=== PATIENT | female | born 1965 | race African-American/Black ===

== ENCOUNTER 2022-05-27 11:20 | Emergency (ER) | payer OTHER ==
[2022-05-27 11:26] VITALS: BP 116/72; PULSE 91; RESP 18; TEMP 98.2
[2022-05-27 12:19] LABS: Basophils # (A) 0.1 k/uL (0-0.2); Basophils % (A) 1 %; Eosinophils # (A) 0.2 k/uL (0-0.7); Eosinophils % (A) 2 %; HCT 39.5 % (34.0-46.0); HGB 13.4 gm/dL (11.4-16.0); Lymphocytes # (A) 2.4 k/uL (1.0-4.8); Lymphocytes % (A) 24 %; MCHC 34.1 g/dL (31.0-37.0); MCV 99.7 fL (80.0-100.0); Monocytes # (A) 0.5 k/uL (0-1.0); Monocytes % (A) 5 %; Neutrophils # (A) 6.9 k/uL (1.3-7.7); Neutrophils % (A) 67 %; Platelet Count 287 k/uL (150-450); RBC 3.96 m/uL (3.80-5.40); RDW 12.4 % (11.5-15.5); WBC 10.3 k/uL (3.8-10.6)
[2022-05-27 12:31] LABS: African American GFR (CKD) >90 (>60 ml/min/1.73 sqM); Anion Gap 4 mmol/L; Blood Urea Nitrogen 9 mg/dL (7-17); Calcium 9.2 mg/dL (8.4-10.2); Carbon Dioxide 30 mmol/L (22-30); Chloride 106 mmol/L (98-107); Glucose 88 mg/dL (74-99); Non-African American GFR(CKD) >90 (>60 ml/min/1.73 sqM); Potassium 4.4 mmol/L (3.5-5.1); Sodium 140 mmol/L (137-145)
--- NOTE | 2022-05-27 12:44 | ED ---
General Adult HPI - General Chief complaint: Recheck/Abnormal Lab/Rx Stated complaint: left side facial swelling Time Seen by Provider: 05/27/22 11:42 Source: patient, RN notes reviewed Mode of arrival: EMS Limitations: no limitations - History of Present Illness Initial comments: 56-year-old female sent emergency Department from [place] for evaluation of left-sided facial swelling. Patient states it started a few days ago worsen overnight. Patient states she has been having upper strength infection which I was improving. Patient was sent here secondary to facial swelling and concerns. Patient states she is shaky. Patient has not she has HIV but well-controlled, she states she is essentially nondetectable. Patient denies fevers chills neck pain neck stiffness or current headache. - Related Data Previous Rx's Medication Instructions Recorded Amoxic-Pot Clav 875-125Mg 1 tab PO Q12HR #20 tab 05/27/22 [Augmentin 875-125] Allergies Allergy/AdvReac Type Severity Reaction Status Date / Time No Known Allergies Allergy Verified 05/27/22 11:26 Review of Systems ROS Statement: Those systems with pertinent positive or pertinent negative responses have been documented in the HPI. ROS Other: All systems not noted in ROS Statement are negative. 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 Absent: scleral icterus, conjunctival injection, periorbital swelling ENT exam: Present: mucous membranes moist, TM's normal bilaterally. Absent: normal exam (Left-sided facial swelling), normal oropharynx (No obvious abscess) Neck exam: Present: normal inspection, full ROM. Absent: tenderness, meningismus, lymphadenopathy Respiratory exam: Present: normal lung sounds bilaterally. Absent: respiratory distress, wheezes, rales, rhonchi, stridor Cardiovascular Exam: Present: regular rate, normal rhythm, normal heart sounds. Absent: systolic murmur, diastolic murmur, rubs, gallop, clicks Course Vital Signs 05/27/22 11:22 Temperature 98.2 F Pulse Rate 91 Respiratory 18 Rate Blood Pressure 116/72 O2 Sat by Pulse 97 Oximetry Medical Decision Making - Medical Decision Making 56-year-old presented for left-sided facial swelling. There is phlegmonous formation. There is no definite abscess. Patient just started antibiotics will be continued on antibiotics lab work is unremarkable patient will be discharged with close return parameters. - Lab Data Result diagrams: 05/27/22 12:08 05/27/22 12:08 Lab Results 05/27/22 05/27/22 Range/Units 12:08 12:08 WBC 10.3 (3.8-10.6) k/uL RBC 3.96 (3.80-5.40) m/uL Hgb 13.4 (11.4-16.0) gm/dL Hct 39.5 (34.0-46.0) % MCV 99.7 (80.0-100.0) fL MCH 34.0 (25.0-35.0) pg MCHC 34.1 (31.0-37.0) g/dL RDW 12.4 (11.5-15.5) % Plt Count 287 (150-450) k/uL MPV 8.0 Neutrophils % 67 % Lymphocytes % 24 % Monocytes % 5 % Eosinophils % 2 % Basophils % 1 % Neutrophils # 6.9 (1.3-7.7) k/uL Lymphocytes # 2.4 (1.0-4.8) k/uL Monocytes # 0.5 (0-1.0) k/uL Eosinophils # 0.2 (0-0.7) k/uL Basophils # 0.1 (0-0.2) k/uL Sodium 140 (137-145) mmol/L Potassium 4.4 (3.5-5.1) mmol/L Chloride 106 (98-107) mmol/L Carbon Dioxide 30 (22-30) mmol/L Anion Gap 4 mmol/L BUN 9 (7-17) mg/dL Creatinine 0.58 (0.52-1.04) mg/dL Est GFR (CKD-EPI)AfAm >90 (>60 ml/min/1.73 sqM) Est GFR (CKD-EPI)NonAf >90 (>60 ml/min/1.73 sqM) Glucose 88 (74-99) mg/dL Calcium 9.2 (8.4-10.2) mg/dL Disposition Clinical Impression: Dental infection, Facial cellulitis Disposition: HOME SELF-CARE Condition: Stable Instructions (If sedation given, give patient instructions): Dental Abscess (ED) Additional Instructions: Please return to the Emergency Department if symptoms worsen or any other concerns. Prescriptions: Amoxic-Pot Clav 875-125Mg [Augmentin 875-125] 1 tab PO Q12HR #20 tab Is patient prescribed a controlled substance at d/c from ED?: No Referrals: None,Stated [Primary Care Provider] - 1-2 days Time of Disposition: 13:04
--- NOTE | 2022-05-27 12:55 | CT ---
EXAMINATION TYPE: CT soft tissue neck w con DATE OF EXAM: 05/27/2022 COMPARISON: None HISTORY: 56-year-old female with left neck and submandibular pain and swelling, Infection TECHNIQUE: Contiguous axial scanning of the soft tissues of the neck performed with IV Contrast, steve ent injected with 100 mL of Isovue 300. Coronal/sagittal reconstructions performed. CT DLP: 221.5 mGycm Automated exposure control for dose reduction was used. FINDINGS: Visualized thyroid, submandibular, and mildly atrophic parotid glands show no gross abnormality. Prominent bilateral submandibular space lymph nodes measuring up to 8 mm short axis on the left and 7 mm short axis on the right. Visualized intracranial structures and mastoid air cells appear clear. On delayed nasal septum. Trace mucosal thickening left ethmoid air cells. There is periapical lucency involving the left maxillary first molar, sagittal image 44 and axial lizeth ge 54. There is prominent overlying soft tissue thickening of both the mucosa and overlying left lowe r maxillary and left mandibular soft tissues. Some minimal poorly defined fluid collection overlying the alveolar ridge here measuring 3 mm thick, axial image 54 suggesting some phlegmon. No well-define d fluid collection is seen. Pronounced degenerative change of the bilateral TMJs. Visualized upper lungs are clear. Nasopharynx is clear. Bilateral lingual tonsillar hypertrophy. Otherwise, oropharynx is clear. Epiglottis and prevertebral soft tissues are satisfactory. Glottic and subglottic structures and tracheal column are clear. Moderate degenerative disc disease C4-C7 levels with reversal of the normal cervical lordosis. IMPRESSION: CELLULITIS ALONG THE LEFT SIDE OF THE FACE AND JAW. PROBABLY ODONTOGENIC ORIGIN GIVEN A PERIAPICAL JEFE CENCY/ABSCESS INVOLVING THE LEFT MAXILLARY FIRST MOLAR. THERE IS SOME 3 MM PHLEGMONOUS THICKENING OVE RLYING THE ALVEOLAR RIDGE HERE BUT NO DISCRETE ABSCESS.
== END 2022-05-27 13:47 | disposition home or self-care (01) ==
LOC: EC 11:20
DX: L03.211 Cellulitis of face (principal); K04.7 Periapical abscess without sinus; J44.9 Chronic obstructive pulmonary disease, unspecified; F41.9 Anxiety disorder, unspecified; F17.200 Nicotine dependence, unspecified, uncomplicated; F11.90 Opioid use, unspecified, uncomplicated; Z79.2 Long term (current) use of antibiotics
CPT/HCPCS: 36415; 80048; 85025; 70491; 99284; Q9967

== ENCOUNTER 2024-10-09 20:46 | Observation (INO) | payer OTHER ==
[2024-10-09 20:55] VITALS: RESP 18
--- NOTE | 2024-10-09 21:21 | ED ---
General Adult HPI - General Chief complaint: Chest Pain Stated complaint: Chest pain Time Seen by Provider: 10/09/24 20:53 Source: patient, EMS Mode of arrival: EMS - History of Present Illness Initial comments: Dictation was produced using [employer] dictation software. please excuse any grammatical, word or spelling errors. Chief Complaint: 59-year-old HIV-positive female presents to the ER for chest pain History of Present Illness: Patient is a 59-year-old female transferred from [facility] facility. Patient has history of coronary artery disease with 1 stent placed 25 years ago. Patient had some chest pain. She went to see medical staff and EMS, patient was brought to the ER she was given 1 nitro with resolution of her symptoms. Patient Nu[place] any symptoms at the bedside. The ROS documented in this emergency department record has been reviewed and confirmed by me. Those systems with pertinent positive or negative responses have been documented in the HPI. All other systems are other negative and/or noncontributory. - Related Data Previous Rx's Medication Instructions Recorded Amoxic-Pot Clav 875-125Mg 1 tab PO Q12HR #20 tab 05/27/22 [Augmentin 875-125] Allergies Allergy/AdvReac Type Severity Reaction Status Date / Time No Known Allergies Allergy Verified 05/27/22 11:26 Review of Systems ROS Statement: Those systems with pertinent positive or pertinent negative responses have been documented in the HPI. ROS Other: All systems not noted in ROS Statement are negative. 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 Cardiovascular: Heart regular rate and rhythm Chest: Able to complete full sentences, no retractions, no tachypnea Abdomen: abdomen soft, non-tender, non-distended, no organomegaly Musculoskeletal: Pulses present and equal in all extremities, no peripheral edema Motor: no focal deficits noted Neurological: CN II-XII grossly intact, no focal motor or sensory deficits noted Skin: Intact with no visualized rashes Psych: Normal affect and mood Course Vital Signs 10/09/24 10/09/24 20:48 21:55 Temperature 98.1 F Pulse Rate 89 88 Respiratory 18 18 Rate Blood Pressure 95/67 98/69 O2 Sat by Pulse 97 96 Oximetry EKG Findings - EKG Comments: EKG Findings:: My EKG interpretation: Ventricular rate 86, sinus rhythm, WV 211, cures 79, QTc 379. No WV prolongation, no QTC prolongation, no ST or T-wave changes noted. Overall, this EKG is unremarkable Medical Decision Making - Medical Decision Making Was pt. sent in by a medical professional or institution (, PA, OPERATIONS SECTION MANAGER, urgent care, hospital, or [facility]...) When possible be specific @ -No Did you speak to anyone other than the patient for history (EMS, parent, family, police, friend...)? What history was obtained from this source @ -No Did you review nursing and triage notes (agree or disagree)? Why? @ -I reviewed and agree with nursing and triage notes Were old charts reviewed (outside hosp., previous admission, EMS record, old EKG, old radiological studies, urgent care reports/EKG's, m[facility] records)? Report findings @ -No old charts were reviewed Differential Diagnosis (chest pain, altered mental status, abdominal pain women, abdominal pain men, vaginal bleeding, musculoskeletal, weakness, fever, dyspnea, syncope, headache, dizziness, GI bleed, back pain, seizure, CVA, palpatations, mental health)? @ -Differential Chest Pain: Stable Angina, Unstable Angina, STEMI, NSTEMI Aortic Dissection, Pneumothorax, Musculoskeletal, Esophageal Spasm GERD, Cholecystitis, Pancreatitis, Zoster, this is not meant to be an all-inclusive list. EKG interpreted by me (3pts min.). @ -See above X-rays interpreted by me (1pt min.). @ -Chest x-ray is nonacute CT interpreted by me (1pt min.). @ -None done U/S interpreted by me (1pt. min.). @ -None done What testing was considered but not performed or refused? (CT, X-rays, U/S, labs)? Why? @ -None What meds were considered but not given or refused? Why? @ -None Was smoking cessation discussed for >3mins.? @ -No Were there social determinants of health that impacted care today? How? (Homelessness, low income, unemployed, alcoholism, drug addiction, transportation, low edu. Level, literacy, decrease access to med. care, long term, rehab)? @ -No Was there de-escalation of care discussed even if they declined (Discuss DNR or withdrawal of care, Hospice)? DNR status @ -No What co-morbidities impacted this encounter? (DM, HTN, Smoking, COPD, CAD, Cancer, CVA, ARF, Chemo, Hep., AIDS, mental health diagnosis, sleep apnea, morbid obesity)? @ -Coronary artery disease Was patient admitted / discharged? Hospital course, mention meds given and route, prescriptions, significant lab abnormalities, going to OR and other pertinent info. @ -59-year-old female presents emergency department chest pain. Patient was risk factors. Vital signs stable. EKG is unremarkable. Labs are unremarkable. Troponin is negative. Patient will be admitted with consultation to cardiology. Case discussed with hospitalist for admission Did you discuss the management of the patient with other professionals (professionals i.e. , PA, OPERATIONS SECTION MANAGER, lab, RT, psych nurse, social work therapist, input output clerk, teacher, chief green officer, nurse case manager)? Give summary @ -See above Was critical care preformed (if so, how long)? @ -No Undiagnosed new problem with uncertain prognosis? @ -No Drug Therapy requiring intensive monitoring for toxicity (Heparin, Nitro, Insulin, Cardizem)? @ -No Were any procedures done? @ -No Diagnosis/symptom? Acute, or Chronic, or Acute on Chronic? Uncomplicated (without systemic symptoms) or Complicated (systemic symptoms)? @ -Chest pain Side effects of treatment? @ -No Exacerbation, Progression, or Severe Exacerbation? @ -No Poses a threat to life or bodily function? How? (Chest pain, [place], [place], pneumonia, PE, COPD, DKA, ARF, appy, cholecystitis, CVA, Diverticulitis, Homicidal, Suicidal, threat to staff... and all critical care pts) @ -yes - Lab Data Result diagrams: 10/09/24 21:09 10/09/24 21:37 Lab Results 10/09/24 10/09/24 10/09/24 Range/Units 21:09 21:09 21:37 WBC 8.36 (4.50-10.00) 10*3/uL RBC 4.05 L (4.10-5.20) 10*6/uL Hgb 13.3 (12.0-15.0) g/dL Hct 39.7 (37.2-46.3) % MCV 98.0 H (80.0-97.0) fL MCH 32.8 H (27.0-32.0) pg MCHC 33.5 (32.0-37.0) g/dL Plt Count 198 (140-440) 10*3/uL MPV 10.4 (9.5-12.2) fL Immature Gran % (Auto) 0.1 % Neutrophils % 47.3 % Lymphocytes % 40.9 % Monocytes % 8.3 % Eosinophils % 2.9 % Basophils % 0.5 % Immature Gran # 0.01 (0.00-0.04) 10*3/uL Neutrophils # 3.96 (1.80-7.70) 10*3/uL Lymphocytes # 3.42 (0.90-5.00) 10*3/uL Monocytes # 0.69 (0.20-1.00) 10*3/uL Eosinophils # 0.24 (0.04-0.35) 10*3/uL Basophils # 0.04 (0.00-0.10) 10*3/uL PT 10.1 (10.0-12.5) sec INR 0.9 (<1.2) APTT 20.6 L (22.0-30.0) sec Sodium 139 (137-145) mmol/L Potassium 4.0 (3.5-5.1) mmol/L Chloride 106 (98-107) mmol/L Carbon Dioxide 27 (22-30) mmol/L Anion Gap 6 mmol/L BUN 20 H (7-17) mg/dL Creatinine 0.63 (0.52-1.04) mg/dL Est GFR (CKD-EPI)AfAm >90 (>60 ml/min/1.73 sqM) Est GFR (CKD-EPI)NonAf >90 (>60 ml/min/1.73 sqM) Glucose 96 (74-99) mg/dL Calcium 10.3 H (8.4-10.2) mg/dL Magnesium 1.9 (1.6-2.3) mg/dL Total Bilirubin 0.3 (0.2-1.3) mg/dL AST 25 (14-36) U/L ALT 29 (4-34) U/L Alkaline Phosphatase 99 (38-126) U/L Troponin I (0.000-0.034) ng/mL Total Protein 6.7 (6.3-8.2) g/dL Albumin 3.7 (3.5-5.0) g/dL 10/09/24 Range/Units 21:37 WBC (4.50-10.00) 10*3/uL RBC (4.10-5.20) 10*6/uL Hgb (12.0-15.0) g/dL Hct (37.2-46.3) % MCV (80.0-97.0) fL MCH (27.0-32.0) pg MCHC (32.0-37.0) g/dL Plt Count (140-440) 10*3/uL MPV (9.5-12.2) fL Immature Gran % (Auto) % Neutrophils % % Lymphocytes % % Monocytes % % Eosinophils % % Basophils % % Immature Gran # (0.00-0.04) 10*3/uL Neutrophils # (1.80-7.70) 10*3/uL Lymphocytes # (0.90-5.00) 10*3/uL Monocytes # (0.20-1.00) 10*3/uL Eosinophils # (0.04-0.35) 10*3/uL Basophils # (0.00-0.10) 10*3/uL PT (10.0-12.5) sec INR (<1.2) APTT (22.0-30.0) sec Sodium (137-145) mmol/L Potassium (3.5-5.1) mmol/L Chloride (98-107) mmol/L Carbon Dioxide (22-30) mmol/L Anion Gap mmol/L BUN (7-17) mg/dL Creatinine (0.52-1.04) mg/dL Est GFR (CKD-EPI)AfAm (>60 ml/min/1.73 sqM) Est GFR (CKD-EPI)NonAf (>60 ml/min/1.73 sqM) Glucose (74-99) mg/dL Calcium (8.4-10.2) mg/dL Magnesium (1.6-2.3) mg/dL Total Bilirubin (0.2-1.3) mg/dL AST (14-36) U/L ALT (4-34) U/L Alkaline Phosphatase (38-126) U/L Troponin I <0.012 (0.000-0.034) ng/mL Total Protein (6.3-8.2) g/dL Albumin (3.5-5.0) g/dL Disposition Clinical Impression: Chest pain Disposition: ADMITTED IP TO THIS HOSP Condition: Fair Referrals: None,Stated [Primary Care Provider] - 1-2 days Decision Time: 22:47
--- NOTE | 2024-10-09 21:22 | XR ---
EXAMINATION TYPE: XR chest 2V DATE OF EXAM: 10/09/2024 9:16 PM COMPARISON: None CLINICAL INDICATION: Female, 59 years old with history of Chest Pain; TECHNIQUE: XR chest 2V Frontal and lateral views of the chest. FINDINGS: Lungs/Pleura: There is no evidence of pleural effusion, focal consolidation, or pneumothorax. Pulmonary vascularity: Unremarkable. Heart/mediastinum: Cardiomediastinal silhouette is unremarkable. Musculoskeletal: No acute osseous pathology. IMPRESSION: No acute cardiopulmonary disease/process. [facility], , 10/09/2024 9:20 PM
[2024-10-09 21:23] LABS: Basophils # (A) 0.04 10*3/uL (0.00-0.10); Basophils % (A) 0.5 %; Eosinophils # (A) 0.24 10*3/uL (0.04-0.35); Eosinophils % (A) 2.9 %; HCT 39.7 % (37.2-46.3); HGB 13.3 g/dL (12.0-15.0); Lymphocytes # (A) 3.42 10*3/uL (0.90-5.00); Lymphocytes % (A) 40.9 %; MCH 32.8 pg (27.0-32.0); MCHC 33.5 g/dL (32.0-37.0); Mean Platelet Volume 10.4 fL (9.5-12.2); Monocytes # (A) 0.69 10*3/uL (0.20-1.00); Monocytes % (A) 8.3 %; Neutrophils # (A) 3.96 10*3/uL (1.80-7.70); Neutrophils % (A) 47.3 %; Platelet Count 198 10*3/uL (140-440); RBC 4.05 10*6/uL (4.10-5.20); RDW 13.2 % (11.5-14.5); WBC 8.36 10*3/uL (4.50-10.00)
[2024-10-09 22:06] LABS: INR 0.9 (<1.2); Prothrombin Time 10.1 sec (10.0-12.5)
[2024-10-09 22:08] LABS: ALT 29 U/L (4-34); AST 25 U/L (14-36); African American GFR (CKD) >90 (>60 ml/min/1.73 sqM); Albumin 3.7 g/dL (3.5-5.0); Alkaline Phosphatase 99 U/L (38-126); Anion Gap 6 mmol/L; Blood Urea Nitrogen 20 mg/dL (7-17); Calcium 10.3 mg/dL (8.4-10.2); Carbon Dioxide 27 mmol/L (22-30); Chloride 106 mmol/L (98-107); Glucose 96 mg/dL (74-99); Magnesium 1.9 mg/dL (1.6-2.3); Non-African American GFR(CKD) >90 (>60 ml/min/1.73 sqM); Sodium 139 mmol/L (137-145); Total Bilirubin 0.3 mg/dL (0.2-1.3); Total Protein 6.7 g/dL (6.3-8.2)
[2024-10-09 22:14] LABS: Partial Thromboplastin Time 20.6 sec (22.0-30.0)
[2024-10-09] MEDS ORDERED: NITROGLYCERIN SL TABS 0.4 MG TAB SUBLINGUAL PRN (22:44)
[2024-10-10] MEDS: ASPIRIN 325 MG TAB PO SCH (08:01)
[2024-10-10 08:17] LABS: Chol/HDL Ratio 5.97 Ratio; LDL Cholesterol,Calculated 208.2 mg/dL (0.0-131.0)
[2024-10-10] MEDS: PANTOPRAZOLE 40 MG TABLET PO SCH (09:50)
--- NOTE | 2024-10-10 11:49 | P.CRDCN ---
History of Present Illness Consult date: 10/10/24 Consult reason: chest pain History of present illness: This is a 59-year-old female with past medical history of COPD, HIV positive, coronary artery disease with previous stent, tobacco use and dependence, crack cocaine use. We have been asked to evaluate the patient for chest pain. Patient states that she is at [place] due to crack use and has been 20 days clean. She states she had chest pain and [facility] when she has chest pain but the rehab did not have her medications correctly and sent her into the hospital for further evaluation. Her engineering tech is Dr. Contreras in [place]. She states she had a cardiac cath done about 25 years ago and stent was done. She denies history of stroke. She is smoking a half a pack per day. Patient ate breakfast this morning but was willing to try a stress test. Was unable to complete a stress echocardiogram due to pain in her right hip secondary to a previous injury. Patient is agreeable to return for stress echocardiogram at a later time. States that the chest pain is gone but she is having heartburn. Blood pressure 111/73, heart ra te 67, pulse ox 96% on room air. -EKG: Sinus rhythm with no acute ST-T wave changes. -Chest x-ray: No acute process. -Laboratory studies: WBC 8.3, hemoglobin 13, electrolytes are normal, BUN 20 creatinine 0.63. Troponin negative x 3. Cholesterol 284, LDL 208, triglycerides 141. -Home cardiac medications: None listed. Review Of Systems: At the time of my exam: CONSTITUTIONAL: Denies fever or chills. HEENT: Denies blurred vision, vision changes, or eye pain. Denies hemoptysis CARDIOVASCULAR: Denies chest pain. Denies orthopnea. Denies PND. Denies palpitations RESPIRATORY: Denies shortness of breath. GASTROINTESTINAL: Denies abdominal pain. Denies nausea or vomiting. HEMATOLOGIC: Denies bleeding disorders. GENITOURINARY: Denies any blood in urine. SKIN: Denies puritis. Denies rash. Physical examination: Gen: This is a 59-year-old black female in no acute distress. VS: reviewed HEENT: Head is atraumatic, normocephalic. Pupils equal, round. Sclerae is anicteric. NECK: Supple. No JVD. LUNGS: Clear to auscultation. No wheezes or rhonchi. No intercostal retractions. HEART: Regular rate and rhythm. No murmur. ABDOMEN: Soft No tenderness. EXTREMITIES: No pedal edema. No calf tenderness. NEUROLOGICAL: Patient is awake, alert and oriented x3. 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 Thank you kindly for this consultation. Nurse practitioner note has been reviewed, I agree with documented findings and plan of care. Patient was seen and examined. 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 Past Psychological History: Anxiety, PTSD Smoking Status: Current some day smoker Past Alcohol Use History: None Reported Past Drug Use History: Cocaine Medications and Allergies Home Medications Medication Instructions Recorded Confirmed Type Amoxic-Pot Clav 875-125Mg 1 tab PO Q12HR #20 tab 05/27/22 Rx [Augmentin 875-125] Allergies Allergy/AdvReac Type Severity Reaction Status Date / Time No Known Allergies Allergy Verified 05/27/22 11:26 Physical Exam Vitals: Vital Signs Temp Pulse Resp BP Pulse Ox 10/10/24 09:02 84 10/10/24 05:21 98.7 F 70 18 107/66 98 10/10/24 00:00 98 18 99/55 97 10/09/24 21:55 88 18 98/69 96 10/09/24 20:48 98.1 F 89 18 95/67 97 Intake and Output 10/09/24 10/10/24 10/10/24 22:59 06:59 14:59 Other: Weight 72.575 kg Results 10/09/24 21:09 10/09/24 21:37 Cardiac Enzymes 10/09/24 10/09/24 10/10/24 Range/Units 21:37 21:37 00:45 AST 25 (14-36) U/L Troponin I <0.012 <0.012 (0.000-0.034) ng/mL 10/10/24 Range/Units 03:42 AST (14-36) U/L Troponin I <0.012 (0.000-0.034) ng/mL Coagulation 10/09/24 Range/Units 21:09 PT 10.1 (10.0-12.5) sec APTT 20.6 L (22.0-30.0) sec Lipids 10/10/24 Range/Units 03:42 Triglycerides 141.00 (0.00-149.00) mg/dL Cholesterol 284.00 H (0.00-200.00) mg/dL HDL Cholesterol 47.60 (40.00-60.00) mg/dL Cholesterol/HDL Ratio 5.97 Ratio CBC 10/09/24 Range/Units 21:09 WBC 8.36 (4.50-10.00) 10*3/uL RBC 4.05 L (4.10-5.20) 10*6/uL Hgb 13.3 (12.0-15.0) g/dL Hct 39.7 (37.2-46.3) % Plt Count 198 (140-440) 10*3/uL Comprehensive Metabolic Panel 10/09/24 Range/Units 21:37 Sodium 139 (137-145) mmol/L Potassium 4.0 (3.5-5.1) mmol/L Chloride 106 (98-107) mmol/L Carbon Dioxide 27 (22-30) mmol/L BUN 20 H (7-17) mg/dL Creatinine 0.63 (0.52-1.04) mg/dL Glucose 96 (74-99) mg/dL Calcium 10.3 H (8.4-10.2) mg/dL AST 25 (14-36) U/L ALT 29 (4-34) U/L Alkaline Phosphatase 99 (38-126) U/L Total Protein 6.7 (6.3-8.2) g/dL Albumin 3.7 (3.5-5.0) g/dL Current Medications Generic Name Dose Route Start Last Admin Trade Name Freq PRN Reason Stop Dose Admin Aspirin 325 mg 10/10/24 09:00 10/10/24 08:01 Aspirin 325 Mg Tab PO 325 mg DAILY HITESH Administration Nitroglycerin 0.4 mg 10/09/24 22:44 Nitroglycerin Sl Tabs 0.4 Mg Tab SUBLINGUAL Q5M PRN Chest Pain Intake and Output 10/09/24 10/10/24 10/10/24 22:59 06:59 14:59 Other: Weight 72.575 kg 10/09/24 21:09 10/09/24 21:37
--- NOTE | 2024-10-10 12:09 | CA ---
Stress Echo Report Mey Allen Age: 59 Gender: F : 1965 Exam Date: 10/10/2024 10:25 Exam Location: [facility] Ht (in): 63 Wt (lb): 160 Ordering Physician: Hallie Mohr Referring Physician: HALLIE MOHR,, Confectionery Maker: Laura Jaimes Technologist Procedure CPT: Indication: chest pain, ate breakfast, Angina pectoris with documented spasm ICD-9 Codes: I201 Rhythm: Patient History: Chest pain. Cardiac Medications: SEE CHART,,,,, Medications in past 24 hours: Contrast: Stress Results Protocol: Germán Total dose(mL): Exercise Duration (min:sec): Max ST Depression (mm): Angina Score: Ayala Score: METS: 7.7 Resting HR: 70 Resting BP: 93 / 62 Peak HR: 122 Peak BP: 179 / 68 Max Predicted HR: 162 75 % Max Predicted HR Target HR: 138 Double Product: 48312 Stress Summary: BP Response: Reason for Termination: MAX EXERTION,LEG PAIN Cardiac Symptoms: AARON ECG Analysis Resting ECG: Normal sinus rhythm, heart rate 70 bpm Stress ECG: No significant ST-T wave changes that are diagnostic for ischemia. No sustained arrhythmias or ectopic beats noted during the stress test Arrhythmia: Echo Analysis Resting Echo: Peak Echo Analysis: MEASUREMENTS (Male/Female) Normal Values CONCLUSIONS Treadmill stress test stress echocardiogram images were not obtained. Suboptimal exercise tolerance for age only achieving 7.7 METS Normal hemodynamic response to treadmill exercise. Patient reported shortness of breath at peak stress Only able to achieve 75% of age-predicted maximum heart rate therefore the stress test is nondiagnostic Consider nonexercise based stress test for evaluation for obstructive coronary artery disease Dr Kam Bergeron (Electronically Signed) Final Date: 10 October 2024 12:08
--- NOTE | 2024-10-10 12:23 | CA ---
Transthoracic Echo Report Name: Mey Allen Age: 59 Gender: F : 1965 Exam Date: 10/10/2024 11:05 Exam Location: [place] [facility] Ht (in): 63 Wt (lb): 160 Ordering Physician: Hallie Ricks Attending/Referring Phys: [id number], Millicent Casing Finisher And Stuffer Stella Philip RDCS Procedure CPT: Indications: LVF Cardiac Hx: Technical Quality: Fair Contrast 1: Definity Total Dose (mL): 3 Contrast 2: Total Dose (mL): MEASUREMENTS (Male / Female) Normal Values 2D ECHO LV Diastolic Diameter PLAX 4.6 cm 4.2 - 5.9 / 3.9 - 5.3 cm LV Systolic Diameter PLAX 3.2 cm IVS Diastolic Thickness 0.9 cm 0.6 - 1.0 / 0.6 - 0.9 cm LVPW Diastolic Thickness 1.0 cm 0.6 - 1.0 / 0.6 - 0.9 cm LV Relative Wall Thickness 0.4 LVOT Diameter 2.0 cm Aortic Root Diameter 3.0 cm LV Diastolic Volume MOD BP 96.1 cm??? 67 - 155 / 56 - 104 cm??? LV Systolic Volume MOD BP 35.6 cm??? 22 - 58 / 19 - 49 cm??? LV Ejection Fraction MOD BP 63.0 % >= 55 % LV Cardiac Index MOD BP 2396.4 cm???/min???m??? LV Diastolic Volume MOD 4C 100.6 cm??? LV Systolic Volume MOD 4C 38.9 cm??? LV Ejection Fraction MOD 4C 61.3 % LV Cardiac Index MOD 4C 2444.3 cm???/min???m??? LV Diastolic Length 4C 8.5 cm LV Systolic Length 4C 6.6 cm LV Diastolic Volume MOD 2C 84.8 cm??? LV Systolic Volume MOD 2C 32.0 cm??? LV Ejection Fraction MOD 2C 62.3 % LV Cardiac Index MOD 2C 2095.2 cm???/min???m??? LV Diastolic Length 2C 7.8 cm LV Systolic Length 2C 6.4 cm LA Volume 51.3 cm??? 18 - 58 / 22 - 52 cm??? LA Volume Index 28.2 cm???/m??? 16 - 28 cm???/m??? Ascending Aorta Diameter 3.0 cm DOPPLER AV Peak Velocity 133.2 cm/s AV Peak Gradient 7.1 mmHg AV Mean Velocity 91.1 cm/s AV Mean Gradient 3.7 mmHg AV Velocity Time Integral 27.7 cm LVOT Peak Velocity 87.3 cm/s LVOT Peak Gradient 3.0 mmHg LVOT Velocity Time Integral 18.7 cm LVOT Stroke Volume 59.8 cm??? LVOT Stroke Volume Index 34.0 ml/m??? LVOT Cardiac Index 2369.9 cm???/min???m??? AV Area Cont Eq vti 2.2 cm??? AV Area Cont Eq pk 2.1 cm??? MV Area PHT 4.7 cm??? Mitral E Point Velocity 65.0 cm/s Mitral A Point Velocity 43.1 cm/s Mitral E to A Ratio 1.5 MV Deceleration Time 161.7 ms TR Peak Velocity 235.4 cm/s TR Peak Gradient 22.2 mmHg Right Atrial Pressure 5.0 mmHg Pulmonary Artery Systolic Pressu 27.2 mmHg Right Ventricular Systolic Press 27.2 mmHg PV Peak Velocity 68.9 cm/s PV Peak Gradient 1.9 mmHg FINDINGS Left Ventricle Left ventricular ejection fraction is estimated at 55-60 %. Left ventricular cavity size normal. Left ventricular wall thickness normal. No obvious regional wall motion abnormalities. Right Ventricle Normal right ventricular size and function. Right ventricular systolic pressure within normal limits. Right Atrium Normal right atrial size. Left Atrium Normal left atrial size. Mitral Valve Structurally normal mitral valve. No evidence for mitral valve prolapse. No mitral stenosis. Trace mitral regurgitation. Aortic Valve Trileaflet aortic valve. No aortic valve stenosis or regurgitation. Tricuspid Valve Structurally normal tricuspid valve. No tricuspid stenosis. Mild tricuspid regurgitation. Pulmonic Valve Pulmonic valve not well visualized. No pulmonic stenosis. No pulmonic regurgitation. Pericardium No pericardial effusion. Aorta Normal size aortic root and proximal ascending aorta. CONCLUSIONS LVEF 55% No obvious regional wall motion abnormality No significant valvular dysfunction No significant chamber size abnormality Previewed by: Dr Kam Bergeron (Electronically Signed) Final Date: 10 October 2024 12:22
[2024-10-10 13:16] VITALS: BP 115/69; PULSE 78; TEMP 98.2
[2024-10-10] MEDS ORDERED: ATORVASTATIN 40 MG TAB PO SCH (21:00)
[2024-10-11] MEDS ORDERED: ASPIRIN 81 MG PO SCH (09:00)
--- NOTE | 2024-10-15 09:51 | HP ---
HISTORY AND PHYSICAL 59-year-old white female came from [facility] facility. History of coronary artery disease. One stent placed around 7 or 8 years ago. Came via EMS, was given 1 nitroglycerin with resolution of symptoms. She is a chronic smoker. ALLERGIES: Negative. PAST MEDICAL HISTORY: Cancer, COPD, HIV positive. Anxiety, PTSD. SURGERIES: Breast surgery, heart catheterization, stent, tubal ligation. SOCIAL HISTORY: Current everyday smoker. REVIEW OF SYSTEMS: A 14-point review of systems negative. PHYSICAL EXAMINATION: VITAL SIGNS: Temp 98.1, pulse 88 to 89, respiratory rate 18 to 20, blood pressure 90s over 60s, . EKG sinus rhythm. LUNGS: Scattered wheeze x4. HEMATOLOGY: Negative Homans. CARDIOVASCULAR: S1, S2. NEUROLOGIC: Alert and oriented x3. PSYCH: Fair mood and affect. White count is 8.36, hemoglobin is 13.3, BUN is 60, creatinine 0.63, BUN 20, creatinine 0.63. Negative troponin. ASSESSMENT: 1. Atypical chest pain, rule out myocardial infarction. 2. Chronic obstructive pulmonary disease. 3. Human immunodeficiency virus positive. 4. Prognosis guarded. Continue current treatment. MMODL / IJN: [id number] /
--- NOTE | 2024-10-15 20:51 | DS ---
DISCHARGE SUMMARY MEDICATIONS: 76 b.i.d. The patient came with atypical chest pain, negative D-dimer. Echo was done. Cardiac consultation was done. Stress test was done. The patient passed her stress test. Cardiology cleared her for discharge. Echo showed 55% to 60% ejection fraction, passed stress echo, sent home. Follow up as an outpatient, sent back to rehab. Unclear the cause of chest pain but Cardiology ruled out and D-dimer is negative for PE. PROGNOSIS: Guarded. MMODL / IJN: [id number] /
== END 2024-10-10 14:39 | disposition home or self-care (01) ==
LOC: EC 20:46 → 6NMEDSUR 22:45
PROVIDERS: ADMIT Family Medicine; ATTEND Family Medicine
DX: R07.89 Other chest pain (principal); I25.10 Atherosclerotic heart disease of native coronary artery without angina pectoris; J44.9 Chronic obstructive pulmonary disease, unspecified; Z21 Asymptomatic human immunodeficiency virus [HIV] infection status; M25.551 Pain in right hip; F14.90 Cocaine use, unspecified, uncomplicated; F17.210 Nicotine dependence, cigarettes, uncomplicated; Z95.5 Presence of coronary angioplasty implant and graft; Z87.828 Personal history of other (healed) physical injury and trauma
CPT/HCPCS: 99285; 36415; 93005 ×2; 93017; 93306; 80061; 80053; 83735; 84484 ×2; 85025; 85610; 85730; 71046; G0378 ×2